=== PATIENT | male | born 1965 | race Caucasian/White ===

== ENCOUNTER → 2016-11-27 | Outpatient (CLI) | payer OTHER ==
[~2016-11-27] MED LIST: ASPI81TA28 PO; ATOR-26 PO; CLOP1TAB15 PO; GLIP-199 PO; HYDR-4079 PO; INSDGIPEN SC; LISI-725 PO; METF1TAB53 PO; METO1TAB69 PO; NTRGSL/4 UT; NVLRPUC INJ
[2016-11-27 13:50] LABS: ALT/SGPT 24 U/L (12-78); BLOOD UREA NITROGEN 18 mg/dl (7-18); CALCIUM 9.3 mg/dl (8.5-10.1); CARBON DIOXIDE 26 mmol/L (21-32); CHLORIDE 101 mmol/L (98-107); CHOLESTEROL 122 mg/dl (0-200); CREATININE 0.92 mg/dl (0.60-1.40); GLUCOSE 256 mg/dl (70-99); POTASSIUM 4.8 mmol/L (3.5-5.1); SODIUM 134 mmol/L (136-145)
[2016-11-27 13:57] LABS: ESTIMATED AVERAGE GLUCOSE 197 mg/dl; HA1C FLAG Normal (Normal)
[2016-11-27 14:00] LABS: ALB/GLOB RATIO 0.8 (0.9-2); ALKALINE PHOSPHATASE 110 U/L (45-117); AST/SGOT 12 U/L (15-37); CHOLESTEROL/HDL RATIO 2.8; HDL CHOLESTEROL 43 mg/dl; TRIGLYCERIDES 108 mg/dl (0-150); VERY LOW DENSITY LIPOPROT CALC 22 mg/dl
[2016-11-27 14:10] LABS: RATIO 295.5 mcg/mg (0-30.0)
== END | disposition home or self-care (01) ==
LOC: C.LABMFLN 09:36
PROVIDERS: ATTEND Family Medicine
DX: I25.10 Atherosclerotic heart disease of native coronary artery without angina pectoris (principal); I10 Essential (primary) hypertension; E11.9 Type 2 diabetes mellitus without complications; E78.5 Hyperlipidemia, unspecified; R80.9 Proteinuria, unspecified

== ENCOUNTER → 2016-12-25 | Outpatient (CLI) | payer OTHER ==
[2016-12-28 22:19] LABS: GAMMA GLOBULIN 1.4 G/DL (0.8-1.7); TOTAL PROTEIN 7.8 G/DL (6.2-8.3)
[2016-12-29 07:15] LABS: ALBUMIN % 70.92 %; ALPHA-2-GLOBULIN % 4.76 %; BETA GLOBULIN % 10.57 %; CREATININE UR 246 MG/DL (20-370); GAMMA GLOBULIN % 13.06 %
== END | disposition home or self-care (01) ==
LOC: C.LABMFLN 09:31
PROVIDERS: ATTEND Family Medicine
DX: R77.1 Abnormality of globulin (principal)

== ENCOUNTER → 2017-01-13 | Outpatient (CLI) | payer OTHER ==
[~2017-01-13] VITALS: Ht 182.9 cm; Wt 169.3 kg
[~2017-01-13] MED LIST changes: +LACTATED RINGER'S 1000ML 1,000 ML IV SCH; +METO100T44 PO; -METO1TAB69 PO
[2017-01-13 09:30] VITALS: Ht 182.9 cm; Wt 169.3 kg
[2017-01-13 09:30] LABS: BASO % 0.4 %; BASO ABS # 0.03 K/uL (0-0.2); COMPLETE YES; EOS % 2.7 %; HEMATOCRIT 38.9 % (42-52); IG% 0.1 %; LYMPH % 19.3 %; LYMPH ABS # 1.42 K/uL (1.2-3.4); MEAN CELL VOLUME 89.8 fL (80-100); MEAN CORPUSCULAR HEMOGLOBIN 30.9 pg (25-34); MEAN CORPUSCULAR HGB CONC 34.4 g/dl (32-36); MONO % 6.3 %; NEUT % 71.2 %; PLATELET COUNT 145 K/uL (130-400); RED BLOOD COUNT 4.33 M/uL (4.7-6.1); WHITE BLOOD COUNT 7.34 K/uL (4.8-10.8)
--- NOTE | 2017-01-13 10:14 | PAT Medication Instructions ---
Service Date Jan 13, 2017. Current Home Medication List Aspirin (Aspirin Ec), 81 MG PO QAM Atorvastatin (Lipitor), 80 MG PO for S Clopidogrel (Plavix), 75 MG PO QAM Glipizide (Glipizide Er), 1 TAB PO QAM Hydrocodone/Acetaminophen 10MG/325MG ([place] 10MG/325MG), 1-2 TABS PO Q8H PRN for RN Insulin Glargine (Lantus Solostar), 50 SC QPM Insulin Human Regular (Novolin R), 22 INJ TIDM Lisinopril (Zestril), 20 MG PO QAM Metformin Hcl (Glucophage Ext Rel), 1,000 MG PO BID Metoprolol Succ (Toprol Xl) (Toprol-Xl ), 100 MG PO QAM Nitroglycerin (Nitrostat), 0.4 MG UT PRN Medication Instructions For Your Scheduled Surgery - Continue as directed: Nitroglycerin (Nitrostat), 0.4 MG UT PRN - Hold the following medications 48 hours prior to surgery: Metformin Hcl (Glucophage Ext Rel), 1,000 MG PO BID - Hold the following medications the morning of surgery: Glipizide (Glipizide Er), 1 TAB PO QAM Insulin Human Regular (Novolin R), 22 INJ TIDM Lisinopril (Zestril), 20 MG PO QAM - Take the following medications the morning of surgery with a sip of water OTHERWISE NOTHING TO EAT OR DRINK AFTER MIDNIGHT: Clopidogrel (Plavix), 75 MG PO QAM (okay to continue per surgeon) Aspirin (Aspirin Ec), 81 MG PO QAM (okay to continue per surgeon) Metoprolol Succ (Toprol Xl) (Toprol-Xl ), 100 MG PO QAM Hydrocodone/Acetaminophen 10MG/325MG ([place] 10MG/325MG), 1-2 TABS PO Q8H PRN ( okay to take if needed up to 4 hours prior to surgery) - Take the following medications as scheduled the night before surgery: Insulin Glargine (Lantus Solostar), 50 SC QPM Atorvastatin (Lipitor), 80 MG PO Insulin Human Regular (Novolin R), 22 INJ TIDM Hydrocodone/Acetaminophen 10MG/325MG ([place] 10MG/325MG), 1-2 TABS PO Q8H PRN If you have any questions please call us at [phone] or [phone] or [phone]
[2017-01-13 10:24] LABS: CALCIUM 9.2 mg/dl (8.5-10.1); CREATININE 0.87 mg/dl (0.60-1.40); POTASSIUM 5.7 mmol/L (3.5-5.1)
--- NOTE | 2017-01-13 10:34 | DIAGNOSTIC IMAGING REPORT ---
CHEST PREADMISSION(PA/LAT) HISTORY: Preop. COMPARISON: None. FINDINGS: The lungs are clear. Cardiac silhouette is top normal in size. No pleural effusions. No pneumothorax. IMPRESSION: No acute process. Electronically signed by: Noe Kumar M.D. 01/13/2017 10:32 AM Dictated Date/Time: 01/13/2017 10:30 AM
== END ==
LOC: C.LAB 08:00 → EDSTATUS 02-02 11:30
PROVIDERS: ATTEND Surgery
DX: I65.22 Occlusion and stenosis of left carotid artery (principal); Z01.810 Encounter for preprocedural cardiovascular examination

== ENCOUNTER → 2017-01-20 | Outpatient (CLI) | payer OTHER ==
[~2017-01-20] MED LIST changes: -LACTATED RINGER'S 1000ML 1,000 ML IV SCH
[2017-01-20 15:02] LABS: BLOOD UREA NITROGEN 18 mg/dl (7-18); BUN/CREATININE RATIO 16.6 (10-20); CALCIUM 9.5 mg/dl (8.5-10.1); CARBON DIOXIDE 29 mmol/L (21-32); CHLORIDE 106 mmol/L (98-107); GLUCOSE 280 mg/dl (70-99); POTASSIUM 5.7 mmol/L (3.5-5.1); SODIUM 139 mmol/L (136-145)
== END | disposition home or self-care (01) ==
LOC: C.LABMFLN 10:29
PROVIDERS: ATTEND Family Medicine
DX: E87.5 Hyperkalemia (principal)

== ENCOUNTER → 2017-01-25 | Outpatient (CLI) | payer OTHER | END | disposition home or self-care (01) | LOC: C.LABMFLN 07:30 | PROVIDERS: ATTEND Family Medicine | DX: E87.5 Hyperkalemia (principal) ==

== ENCOUNTER → 2017-04-14 | Outpatient (CLI) | payer OTHER ==
[~2017-04-14] MED LIST changes: -METO100T44 PO; +METO1TAB69 PO
[2017-04-14 18:13] LABS: BLOOD UREA NITROGEN 13 mg/dl (7-18); BUN/CREATININE RATIO 13.1 (10-20); CALCIUM 8.9 mg/dl (8.5-10.1); CARBON DIOXIDE 27 mmol/L (21-32); CHLORIDE 106 mmol/L (98-107); CREATININE 0.97 mg/dl (0.60-1.40); GLUCOSE 195 mg/dl (70-99); SODIUM 140 mmol/L (136-145)
[2017-04-14 18:15] LABS: BASO % 0.4 %; BASO ABS # 0.03 K/uL (0-0.2); COMPLETE YES; EOS % 2.8 %; HEMATOCRIT 42.1 % (42-52); IG% 0.4 %; LYMPH % 21.2 %; LYMPH ABS # 1.74 K/uL (1.2-3.4); MEAN CELL VOLUME 89.2 fL (80-100); MEAN CORPUSCULAR HEMOGLOBIN 30.7 pg (25-34); MEAN CORPUSCULAR HGB CONC 34.4 g/dl (32-36); MEAN PLATELET VOLUME 11.6 fL (7.4-10.4); MONO % 4.9 %; NEUT % 70.3 %; PLATELET COUNT 170 K/uL (130-400); RED BLOOD COUNT 4.72 M/uL (4.7-6.1); WHITE BLOOD COUNT 8.19 K/uL (4.8-10.8)
[2017-04-14 18:23] LABS: ALT/SGPT 34 U/L (12-78)
[2017-04-14 19:10] LABS: RATIO 337.4 mcg/mg (0-30.0)
[2017-04-15 07:41] LABS: ESTIMATED AVERAGE GLUCOSE 237 mg/dl; HA1C FLAG Normal (Normal)
== END | disposition home or self-care (01) ==
LOC: C.LABMFLN 16:05
PROVIDERS: ATTEND Family Medicine
DX: I65.22 Occlusion and stenosis of left carotid artery (principal); E11.29 Type 2 diabetes mellitus with other diabetic kidney complication; E11.65 Type 2 diabetes mellitus with hyperglycemia

== ENCOUNTER 2017-05-04 09:09 | Inpatient (IN) | payer OTHER ==
[2017-04-15 15:22] VITALS: BMI 50.0
[2017-05-04] VITALS (20 sets, daily range): BP systolic 150–192; BP diastolic 68–94; PULSE 84–97; TEMP 36.7–37; O2SAT 92–98; Ht 182.9 cm; Wt 166.1 kg
[~2017-05-04] VITALS: Ht 182.9 cm; Wt 166.1 kg
[~2017-05-04 09:09] MED LIST changes: +HEPARIN SOD (PORCINE) 1000 UNIT/ML 10 ML VIAL ONE; +LACTATED RINGER'S 1000ML 1,000 ML IV SCH; -LISI-725 PO; +PROTAMINE SULFATE 10 MG/ML 5 ML VIAL IV ONE
[2017-05-04] MEDS ORDERED: NovoLIN-R INSULIN PER UNIT CHARGE ONE (10:05)
[2017-05-04] MEDS ORDERED: NovoLIN-R INSULIN PER UNIT CHARGE IV STA (10:11)
[2017-05-04] MEDS ORDERED: PHENYLEPHRINE HCL INJ 10 MG/ML VIAL ONE ×2 (10:22→10:23)
[2017-05-04] MEDS ORDERED: ONDANSETRON INJ 2 MG/ML 2 ML VIAL ONE ×2 (10:22→15:02)
[2017-05-04] MEDS ORDERED: DEXAMETHASONE SOD INJ 4 MG/ML VIAL ONE (10:22)
[2017-05-04] MEDS ORDERED: LIDOCAINE HCL 2% 2 ML VIAL (20MG/ML) ONE (10:22)
[2017-05-04] MEDS ORDERED: ROCURONIUM BROMIDE 10 MG/ML 5 ML VIAL ONE (10:22)
[2017-05-04] MEDS ORDERED: PROPOFOL IV EMULSION 10 MG/ML 20 ML VIAL IV ONE (10:22)
[2017-05-04] MEDS ORDERED: EpHEDrine SULFATE INJ 50 MG/ML AMP ONE (10:22)
[2017-05-04] MEDS ORDERED: NEOSTIGMINE METHYLSULFATE 5 MG/5 ML SYR ONE (10:22)
[2017-05-04] MEDS ORDERED: SUCCINYLCHOLINE CHLORIDE 20 MG/ML 10 ML VIAL IV ONE (10:22)
[2017-05-04] MEDS ORDERED: GLYCOPYRROLATE INJ 0.2 MG/ML VIAL ONE (10:22)
[2017-05-04] MEDS ORDERED: MIDAZOLAM HCL 1 MG/ML 2ML VIAL ONE ×2 (10:23→16:01)
[2017-05-04] MEDS ORDERED: NITROGLYCERIN 5 MG/ML 10 ML VIAL ONE (10:23)
[2017-05-04] MEDS ORDERED: FENTANYL CITRATE INJ 50 MCG/1 ML 2 ML VIAL ONE ×3 (10:23→13:46)
[2017-05-04] MEDS ORDERED: METOPROLOL TARTRATE 1 MG/ML VIAL ONE (10:24)
[2017-05-04] MEDS ORDERED: ALBUTEROL 0.083% NEBU SOLN 3 ML VIAL INH SCH (10:30)
[2017-05-04] MEDS ORDERED: LIDOCAINE/EPINEPHRINE 1% 20 ML VIAL ONE (12:36)
[2017-05-04] MEDS ORDERED: HEPARIN SOD (PORCINE) 1000 UNIT/ML 10 ML VIAL ONE (12:37)
[2017-05-04] MEDS ORDERED: BACITRACIN 50000 UNIT VIAL ONE (12:37)
--- NOTE | 2017-05-04 12:46 | History & Physical Bridge Note ---
H&P Re-Evaluation Bridge Note: I have examined the patient, reviewed the History & Physical and in the interval since the performance of the History & Physical I have noted the following changes of clinical significance: No changes notedpt marked family at bedside, price completely shaved off
[2017-05-04] MEDS ORDERED: CISATRACURIUM BESYLATE IV SOLN 2 MG/ML 10 ML VIAL ONE (13:55)
[2017-05-04] MEDS ORDERED: NALOXONE HCL 0.4 MG/1 ML VIAL/CARP IV PRN (15:15)
[2017-05-04] MEDS ORDERED: PROMETHAZINE HCL INJ 12.5 MG in SODIUM CHLORIDE 0.9% 50ML 50 ML IV PRN (15:15)
[2017-05-04] MEDS ORDERED: EpHEDrine SULFATE INJ 50 MG/ML AMP IV PRN (15:15)
[2017-05-04] MEDS ORDERED: LABETALOL HCL IV 5 MG/ML 20ML IV PRN (15:15)
[2017-05-04] MEDS ORDERED: ATROPINE SULFATE 0.1 MG/ML 5ML SYR IV PRN (15:15)
[2017-05-04] MEDS ORDERED: ONDANSETRON INJ 2 MG/ML 2 ML VIAL IV PRN ×2 (15:15→15:30)
[2017-05-04] MEDS ORDERED: FLUMAZENIL 0.1 MG/1 ML 10 ML VIAL IV PRN (15:15)
[2017-05-04] MEDS ORDERED: GLUCAGON FOR INJ 1 MG VIAL SQ PRN (15:30)
[2017-05-04] MEDS ORDERED: DEXTROSE 50% 50 ML SYR IV PRN (15:30)
[2017-05-04] MEDS ORDERED: GLUCOSE 40% GEL 15 GM TUBE PO PRN (15:30)
[2017-05-04] MEDS ORDERED: GLUCOSE 10 TABS/TUBE PO PRN (15:30)
--- NOTE | 2017-05-04 15:30 | [facility] Operative Report ---
Operative Report Operative Date May 04, 2017. Pre-Operative Diagnosis Left carotid stenosis critical Post-Operative Diagnosis Left carotid stenosis critical with hemorrhagic plaque Procedure(s) Performed Left Carotid Endarterectomy with bovine patch angioplasty Surgeon Dr Andrea Dumont Lead Generator Surgeon(s) Bhavik Conde Estimated Blood Loss 50ml Findings critical stenosis with elevated hemorrhagic plaque Specimens a. Left carotid plaque Drains 1/4 javier incision per stab Indications critical stenosis left int car Description of Procedure dictated procedure 05/05/17 since operations logistics analyst service not available 05/04/17 confirmation number [id number] I attest to the content of the Intraoperative Record and any orders documented therein. Any exceptions are noted below.
[2017-05-04 15:33] LABS: URINE APPEARANCE CLEAR (CLEAR); URINE BILIRUBIN NEG (NEG); URINE COLOR YELLOW; URINE NITRITE NEG (NEG); URINE PH 5.5 (4.5-7.5); URINE SPECIFIC GRAVITY 1.025 (1.000-1.030); UROBILINOGEN NEG (NEG)
[2017-05-04 15:39] LABS: MANUAL MICROSCOPIC REQUIRED? NO; REVIEW REQ? NO
[2017-05-04] MEDS: NITROGLYCERIN/D5W 100 MCG/ML 250 ML IV PRN ×2 (15:55→22:26)
[2017-05-04] MEDS ORDERED: MIDAZOLAM HCL 5 MG/ML 1 ML VIAL IV STA (16:05)
[2017-05-04] MEDS: HYDROmorphone INJ 1 MG/ML SYR IV PRN ×3 (16:09→16:30)
--- NOTE | 2017-05-04 16:31 | Anesthesiology Progress Note ---
Anesthesia Post Op Note Date & Time May 04, 2017 at 16:29 Vital Signs Pain Intensity: 6.0 Vital Signs Past 12 Hours Date Time Temp Pulse Resp B/P (MAP) Pulse Ox O2 Delivery O2 Flow Rate FiO2 05/04/17 16:21 174/95 05/04/17 16:17 152/75 05/04/17 16:14 88 17 150/66 95 05/04/17 16:14 88 20 158/67 96 05/04/17 16:12 153/78 153/92 05/04/17 16:09 87 16 153/67 98 05/04/17 16:09 87 16 05/04/17 16:07 158/84 05/04/17 16:02 153/83 161/92 05/04/17 15:59 86 21 161/74 97 05/04/17 15:59 85 19 159/72 97 05/04/17 15:57 185/89 05/04/17 15:54 86 14 169/94 93 05/04/17 15:54 86 14 05/04/17 15:53 171/96 05/04/17 15:49 85 15 161/73 96 05/04/17 15:49 83 15 160/84 05/04/17 15:47 171/89 05/04/17 15:44 85 16 145/73 96 05/04/17 15:44 83 22 170/78 95 05/04/17 15:41 165/97 05/04/17 15:40 157/93 05/04/17 15:39 36.6 80 12 157/93 95 Mask 10 159/78 05/04/17 10:42 84 14 98 Room Air 05/04/17 09:45 36.7 84 20 176/87 97 Room Air Notes Mental Status: alert / awake / arousable, participated in evaluation Pt Amnestic to Procedure: Yes Nausea / Vomiting: adequately controlled Pain: adequately controlled Airway Patency, RR, SpO2: stable & adequate BP & HR: stable & adequate Hydration State: stable & adequate Anesthetic Complications: no major complications apparent The patient was transferred to the ICU in stable condition with a systolic blood pressure in the 150s per protocol. I discussed the patient with Mr. Samayoa prior to transferring the patient.
[2017-05-04 16:55] LABS: BUN/CREATININE RATIO 15.3 (10-20); CALCIUM 8.2 mg/dl (8.5-10.1); CREATININE 0.86 mg/dl (0.60-1.40); POTASSIUM 4.3 mmol/L (3.5-5.1)
[2017-05-04] MEDS: MoRPHine SULFATE 4 MG/ML 1 ML CARP\\VIAL IV PRN ×2 (17:22→22:45)
[2017-05-04] MEDS ORDERED: MODERATE STRESS LEVEL ONE (17:30)
[2017-05-04] MEDS ORDERED: INSULIN PROTOCOL GOAL RANGE ONE (17:30)
[2017-05-04] MEDS: CLOPIDOGREL BISULFATE 75 MG TAB PO SCH (17:38)
[2017-05-04] MEDS: ASPIRIN 81 MG ECTAB PO SCH (17:38)
[2017-05-04] MEDS ORDERED: INSULIN IV INFUSION PROTOCOL SCH (17:38)
[2017-05-04] MEDS: METOPROLOL SUCC 50MG EXT REL TAB PO SCH (17:39)
[2017-05-04] MEDS ORDERED: INSULIN HUMAN REGULAR IV BOLUS 4 UNIT in SYRINGE 0 ML IV SCH (18:30)
[2017-05-04] MEDS: INSULIN REGULAR 250 UNITS in SODIUM CHLORIDE 0.9% 250ML 250 ML IV SCH (18:34)
--- NOTE | 2017-05-04 18:59 | Critical Care Consultation ---
Critical Care Consultation Date of Consultation: May 04, 2017. Attending Physician: Andrea Dumont M.D. Reason for Consultation: s/p LEFT Carotid Endarterectomy History of Present Illness Patient is a 51-year-old male with a company past medical history who presents to the ICU after having LEFT-sided carotid endarterectomy with bovine patch angioplasty performed by Dr. Dumont. Patient was initially found to have a carotid bruit on physical exam by his primary care provider, Dr. Ro. He was subsequently evaluated by Dr. Dumont for consultation and possible need for intervention. He was essentially asymptomatic despite a 90% LEFT mid carotid occlusion which was diagnosed on ultrasound with subsequent angiography studies performed an outpatient facilities. The patient had been on Plavix for approximately one year after having cardiac catheterization with ROSIO deployment performed at [facility] secondary to what the patient describes as an NSTEMI. The patient's procedure was withheld until he was one year post cath. The patient presents to ICU 110 without significant complaints. He does state that he is "sore from surgery" to the LEFT sided neck. Otherwise, the patient denies any significant discomfort. He rates his current discomfort as 5/10. He denies any headaches, dizziness, lightheadedness, blurry vision, double vision, slurred speech, facial droop, unilateral weakness/numbness, nausea, vomiting, chest pain, palpitations, shortness of breath, pleuritic pain, or abdominal discomfort. Patient is an insulin-dependent diabetic and has controlled his blood sugars with Lantus and NovoLog for the past 8 years. He is reportedly compliant with his daily medications. He does admit to smoking approximately one half a pack of cigarettes per day most recently. He had actually quit one point for approximate 3 years. He does report he plans on quitting after this procedure. He reports no recreational substance abuse or heavy alcohol use. There was an estimated 20 mL blood loss during the procedure without reported significant complication. Past Medical/Surgical History Hypertension Insulin-dependent diabetes Carotid atherosclerosis NSTEMI Coronary angiography with stenting Hyperlipidemia Chronic smoking history Social History Smoking Status: Current Every Day Smoker Smokeless Tobacco Use: No Drug Use: none Marital Status: Housing Status: lives with family Occupation Status: employed Allergies Coded Allergies: No Known Allergies (Unverified , 05/04/17) Home Medications Scheduled Aspirin (Aspirin Ec), 81 MG PO QAM Atorvastatin (Lipitor), 80 MG PO HS Clopidogrel (Plavix), 75 MG PO QAM Glipizide (Glipizide Er), 1 TAB PO QAM Insulin Glargine (Lantus Solostar), 50 SC QPM Insulin Human Regular (Novolin R), 26 INJ TIDM Metformin Hcl (Glucophage Ext Rel), 1,000 MG PO BID Metoprolol Succ (Toprol Xl) (Toprol-Xl ), 150 MG PO QAM Nitroglycerin (Nitrostat), 0.4 MG UT PRN Scheduled PRN Hydrocodone/Acetaminophen 10MG/325MG ([place] 10MG/325MG), 1-2 TABS PO Q8H PRN for RN Current Inpatient Medications Current Inpatient Medications Medications (Trade) Dose Ordered Sig/Moisés Route Start Time Stop Time Status Last Admin Dose Admin Lactated Ringer's 1,000 ml @ 15 mls/hr Q24H IV 05/04/17 06:00 05/05/17 05:59 Hydromorphone HCl (Dilaudid Inj) 0.25 mg Q5M PRN IV 05/04/17 15:15 05/04/17 20:15 05/04/17 16:30 0.25 MG Naloxone HCl (Narcan Inj) 0.2 mg Q2M PRN IV 05/04/17 15:15 05/04/17 20:15 Flumazenil (Romazicon Inj) 0.2 mg Q2M PRN IV 05/04/17 15:15 05/04/17 20:15 Ondansetron HCl (Zofran Inj) 4 mg ONE PRN IV 05/04/17 15:15 05/04/17 20:15 Promethazine HCl 12.5 mg/Sodium Chloride 50.5 ml @ 202 mls/hr ONE PRN IV 05/04/17 15:15 05/04/17 20:15 Labetalol HCl (Normodyne IV) 5 mg Q5M PRN IV 05/04/17 15:15 05/04/17 20:15 Ephedrine Sulfate (EpHEDrine SULFATE INJ) 5 mg Q5M PRN IV 05/04/17 15:15 05/04/17 20:15 Atropine Sulfate (Atropine Sulfate 0.1MG/Ml Inj) 0.5 mg Q1M PRN IV 05/04/17 15:15 05/04/17 20:15 Nitroglycerin/ Dextrose 250 ml @ 0 mls/hr Q0M PRN IV 05/04/17 15:23 06/03/17 15:22 05/04/17 15:55 45 MLS/HR Oxycodone/ Acetaminophen (Percocet 5-325mg Tab) FOR MODERATE PAIN ... Q4H PRN PO 05/04/17 15:30 05/18/17 15:29 Morphine Sulfate (MoRPHine SULFATE INJ) 4 mg Q2H PRN IV 05/04/17 15:30 05/18/17 15:29 05/04/17 17:22 4 MG Ondansetron HCl (Zofran Inj) 4 mg Q6H PRN IV 05/04/17 15:30 06/03/17 15:29 Insulin Human Regular (novoLIN-R) SLIDING SCALE IF C... ACHS SC 05/04/17 21:00 06/03/17 20:59 Glucose (Glucose 40% Gel) 15-30 GRAMS 15 GRAMS... UD PRN PO 05/04/17 15:30 06/03/17 15:29 Glucose (Glucose Chew Tab) 4-8 Tablets 4 Tabl... UD PRN PO 05/04/17 15:30 06/03/17 15:29 Dextrose (Dextrose 50% 50ML Syringe) 25-50ML OF 50% DW IV FOR... UD PRN IV 05/04/17 15:30 06/03/17 15:29 Glucagon (Glucagon Inj) 1 mg UD PRN SQ 05/04/17 15:30 06/03/17 15:29 Aspirin (Ecotrin Tab) 81 mg QAM PO 05/04/17 18:00 06/03/17 17:59 Clopidogrel Bisulfate (plAVix TAB) 75 mg QAM PO 05/04/17 18:00 06/03/17 17:59 Metoprolol Succinate (Toprol Xl Tab) 150 mg QAM PO 05/04/17 17:30 06/03/17 17:29 Insulin Human Regular (Insulin IV Infusion Protocol) 1 ea NOW STAT N/A 05/04/17 17:28 05/04/17 17:29 UNV Insulin Aspart (novoLOG ASPART) SLIDING SCALE PCHS MI 05/04/17 21:00 06/03/17 20:59 UNV Miscellaneous (Insulin Protocol Goal Range (Other)) 1 ea ONE ONCE N/A 05/04/17 17:30 05/04/17 17:31 UNV Miscellaneous (Insulin Protocol Moderate Stress Level) 1 ea ONE ONCE N/A 05/04/17 17:30 05/04/17 17:31 UNV Review of Systems A complete 10-point Review of Systems was discussed with the patient, with pertinent positives and negatives listed in the History of Present Illness. All remaining Review of Systems questions can be considered negative unless otherwise specified. Physical Exam Date Time Temp Pulse Resp B/P (MAP) Pulse Ox O2 Delivery O2 Flow Rate FiO2 05/04/17 16:56 89 16 159/73 05/04/17 16:56 37.1 05/04/17 16:56 16 05/04/17 16:52 90 15 93 05/04/17 16:52 90 15 05/04/17 16:48 90 17 158/67 93 05/04/17 16:48 90 14 155/66 93 05/04/17 16:46 160/80 05/04/17 16:42 147/77 05/04/17 16:38 37.1 05/04/17 16:38 88 12 134/66 95 05/04/17 16:38 89 12 05/04/17 16:37 141/94 05/04/17 16:33 90 16 138/61 91 05/04/17 16:33 90 19 147/64 91 05/04/17 16:32 146/75 152/81 05/04/17 16:27 89 19 156/67 05/04/17 16:27 88 14 147/79 96 05/04/17 16:21 150/89 05/04/17 16:17 152/75 05/04/17 16:14 88 17 150/66 95 05/04/17 16:14 88 20 158/67 96 05/04/17 16:12 153/78 153/92 05/04/17 16:09 87 16 153/67 98 05/04/17 16:09 87 16 05/04/17 16:07 158/84 05/04/17 16:02 153/83 161/92 05/04/17 15:59 86 21 161/74 97 05/04/17 15:59 85 19 159/72 97 05/04/17 15:57 185/89 05/04/17 15:54 86 14 169/94 93 05/04/17 15:54 86 14 05/04/17 15:53 171/96 05/04/17 15:49 85 15 161/73 96 05/04/17 15:49 83 15 160/84 05/04/17 15:47 171/89 05/04/17 15:44 85 16 145/73 96 05/04/17 15:44 83 22 170/78 95 05/04/17 15:41 165/97 05/04/17 15:40 157/93 05/04/17 15:39 36.6 80 12 157/93 95 Mask 10 159/78 05/04/17 10:42 84 14 98 Room Air 05/04/17 09:45 36.7 84 20 176/87 97 Room Air VITAL SIGNS - Vital signs and nursing notes were reviewed. GENERAL - 51-year-old male appearing his stated age who is in no acute distress. Communicates well with provider and answers questions appropriately. SKIN - Postoperative dressing intact to the LEFT-sided neck. No saturation of blood through the dressing appreciated. No facial edema or tenderness to palpation appreciated. HEAD - Normocephalic, Atraumatic. No Ibanez's Sign or Raccoon's Eyes. No depressed skull fractures palpable. EYES - PERRL with EOMI bilaterally. Sclera anicteric. Palpebral conjunctiva pink and moist with no injection noted. Funduscopic exam demonstrates no AV- nicking, cotton wool spots, or flame hemorrhages. EARS - No deformities of external structures noted on gross examination bilaterally. No pain elicited with palpation of the tragus bilaterally. External auditory canals without discharge or otorrhea. Tympanic membranes pearly torres without retraction or bulging. NOSE - Midline and without cyanosis. No epistaxis or purulent drainage noted. Septum midline without deviation or septal hematoma noted. MOUTH/OROPHARYNX - Without perioral cyanosis. Buccal mucosa pink and moist and without leukoplakia. Tongue midline with equal elevation of palate bilaterally. Fair dentition noted. NECK - As above. No nuchal rigidity. LUNGS - Chest wall symmetric without accessory muscle use, intercostals retractions, or central cyanosis. Normal vesicular breath sounds CTA B/L. No wheezes, rales, or rhonchi appreciated. CARDIAC - RRR with S1/S2. No murmur, rubs, or gallops appreciated. ABDOMEN - Abdominal contour obese and without pulsations or visible masses. BS normoactive all four quadrants. No tenderness, palpable masses, hepatosplenomegaly, or ascites noted. EXTREMITIES - No pretibial edema present. +3/5 radial and dorsalis pedis pulses palpated throughout. FROM with no tremors, fasciculations, or clonus noted throughout. +5/5 strength noted in UE/LE bilaterally. NEUROLOGIC - Cranial nerves II through XII grossly intact. Sensory intact to light touch throughout. Patellar reflexes +2/4. Patient able to perform rapid alternating movements appropriately. PSYCH - A&Ox3 and cooperates fully with examiner. Pt is very pleasant and interacts well with examiner. Laboratory Results Last 24 Hours Test 05/04/17 09:36 05/04/17 10:50 05/04/17 11:47 05/04/17 13:20 Bedside Glucose 277 mg/dl 201 mg/dl 201 mg/dl Urine Color YELLOW Urine Appearance CLEAR Urine pH 5.5 Urine Specific [place] 1.025 Urine Protein 1+ Urine Glucose (UA) 3+ Urine Ketones NEG Urine Occult Blood NEG Urine Nitrite NEG Urine Bilirubin NEG Urine Urobilinogen NEG Urine Leukocyte Esterase NEG Urine WBC (Auto) 1-5 /hpf Urine RBC (Auto) 0-4 /hpf Urine Hyaline Casts (Auto) 0 /lpf Urine Epithelial Cells (Auto) 5-10 /lpf Urine Bacteria (Auto) NEG Test 05/04/17 16:13 05/04/17 17:26 Sodium Level 139 mmol/L Potassium Level 4.3 mmol/L Chloride Level 107 mmol/L Carbon Dioxide Level 26 mmol/L Anion Gap 6.0 mmol/L Blood Urea Nitrogen 13 mg/dl Creatinine 0.86 mg/dl Est Creatinine Clear Calc Drug Dose 166.0 ml/min Estimated GFR () 118.0 Estimated GFR (Non- 101.8 BUN/Creatinine Ratio 15.3 Random Glucose 261 mg/dl Calcium Level 8.2 mg/dl Bedside Glucose 268 mg/dl Assessment & Plan (1) Status post carotid endarterectomy (2) Hyperglycemia (3) Diabetes Reason Critically Ill: Status post LEFT-sided carotid endarterectomy with bovine patch angioplasty currently on nitroglycerin drip for blood pressure control. Elevated blood glucose intraoperatively with poor control with one- time dose of 15 units. There is question whether or not this dose had been provided per nursing staff. To be monitored in the ICU overnight for strict blood pressure monitoring and glycemic control. PLAN: Neuro: * Patient alert and oriented. No neurological deficits appreciated on exam. Serial neurological checks q4hrs per nursing protocol. Resp: * Oxygenating well on 4L NC postoperatively - * Continue to wean off O2 as tolerated. * Encourage Incentive Spirometry. * History of Cigarette use - * Encourage Cessation. * Nicotine Patch as needed. * Monitor for wheezing s/p general anesthesia in the setting of current smoker - DuoNebs PRN. CV: * Currently Hypertensive s/p CEA - Nitro gtt at 100 mcg/min - wean as BP tolerates. * Goal BP <160s/100s. * Restart home antihypertensive Rx. * h/o NSTEMI - s/p ROSIO 1 year ago. Restart Plavix and Aspirin. Fluids/Renal: * No current fluids at this time. Tolerating clears. * BNP in PACU demonstrates no electrolyte disturbances. No ALYSSA w/ BUN/Cr of 13/ 0.86. * Patient requested Luna to be removed in PACU. ID: * No indication for antibiotics at this point. GI/Nutrition: * Tolerating Clears. * Progress diet as directed by surgery. Heme: * Reported EBL of 20 mL intraoperatively. * H&H preoperatively on 04/14/2017 found to be 14.5/42.1. Type & Cross - A Positive. * No saturation of bandage at this point. Continue to monitor closely. Endocrine: * Insulin gtt (Moderate Stress) stared for strict glycemic control. * BSGs per Insulin gtt protocol. Continue to goal BSG 140-480. Thank you for the consultation in the care of this patient. No critical care time provided. To be billed as a Level V care. Please refer to my attending physician's documentation for further recommendation. I have personally evaluated and examined this patient. I agree with assessment and plan of Roxann Cespedes PA-C. Poorly controlled diabetes type 2, started on insulin infusion.
[2017-05-04] MEDS: OXYCODONE/ACETAMINOPHEN 5-325 TAB PO PRN ×2 (19:14→23:57)
[2017-05-04] MEDS ORDERED: ALBUT/IPRATROP 3MG/0.5MG NEB 3 ML VIAL INH PRN (19:15)
[2017-05-04] MEDS ORDERED: NICOTINE 21 MG/24 HR TDSY TD ONE (19:15)
[2017-05-04] MEDS: INSULIN ASPART 100 UNITS/ML 3 ML PEN SC SCH (20:48)
[2017-05-04] MEDS ORDERED: INSULIN HUMAN REGULAR SC SCH (21:00)
[2017-05-05] VITALS (15 sets, daily range): BP systolic 110–177; BP diastolic 52–95; PULSE 73–89; TEMP 36.4–36.8; O2SAT 90–98
[2017-05-05] MEDS: NITROGLYCERIN/D5W 100 MCG/ML 250 ML IV PRN ×3 (01:46→07:23)
[2017-05-05] MEDS: MoRPHine SULFATE 4 MG/ML 1 ML CARP\\VIAL IV PRN (03:25)
[2017-05-05 05:51] LABS: BASO % 0.2 %; BASO ABS # 0.02 K/uL (0-0.2); COMPLETE YES; EOS % 1.5 %; HEMATOCRIT 36.9 % (42-52); IG% 0.4 %; LYMPH % 11.1 %; MEAN CELL VOLUME 89.1 fL (80-100); MEAN CORPUSCULAR HEMOGLOBIN 30.4 pg (25-34); MEAN CORPUSCULAR HGB CONC 34.1 g/dl (32-36); MEAN PLATELET VOLUME 11.2 fL (7.4-10.4); MONO % 5.6 %; NEUT % 81.2 %; PLATELET COUNT 159 K/uL (130-400); RED BLOOD COUNT 4.14 M/uL (4.7-6.1); WHITE BLOOD COUNT 9.95 K/uL (4.8-10.8)
[2017-05-05 06:27] LABS: BUN/CREATININE RATIO 12.2 (10-20); CALCIUM 8.2 mg/dl (8.5-10.1); CREATININE 0.7 mg/dl (0.60-1.40); POTASSIUM 4.1 mmol/L (3.5-5.1)
[2017-05-05 06:30] LABS: MAGNESIUM 1.2 mg/dl (1.8-2.4); PHOSPHORUS 3.8 mg/dl (2.5-4.9)
[2017-05-05] MEDS: MAGNESIUM SULFATE 1GM / D5W 1 GM in PREMIXED IN D5W 100 ML IV SCH ×2 (07:22→09:11)
[2017-05-05] MEDS: CLOPIDOGREL BISULFATE 75 MG TAB PO SCH (07:23)
[2017-05-05] MEDS: METOPROLOL SUCC 50MG EXT REL TAB PO SCH (07:24)
[2017-05-05] MEDS: ASPIRIN 81 MG ECTAB PO SCH (07:24)
[2017-05-05] MEDS: OXYCODONE/ACETAMINOPHEN 5-325 TAB PO PRN ×2 (07:29→15:09)
--- NOTE | 2017-05-05 07:29 | Surgery Progress Note ---
Surgery Progress Note Date of Service May 05, 2017. Subjective Post OP Day: 1 s/p lce alert coherent in no distress intraop findings discussed with pt Objective Vital Signs: Date Time Temp Pulse Resp B/P (MAP) Pulse Ox O2 Delivery O2 Flow Rate FiO2 05/05/17 06:00 83 13 169/70 (103) 96 Nasal Cannula 2.0 158/87 (110) 05/05/17 04:00 36.5 81 16 166/72 (103) 94 Nasal Cannula 2.0 155/95 (115) 05/05/17 04:00 95 Nasal Cannula 2.0 05/05/17 02:00 87 15 164/71 (102) 93 Nasal Cannula 1.0 138/77 (97) 05/05/17 00:01 36.8 88 17 177/75 (109) 93 Room Air 05/04/17 23:59 92 Room Air 05/04/17 22:01 92 18 158/74 (102) 97 Nasal Cannula 2.0 05/04/17 22:00 93 14 161/73 (102) 95 05/04/17 21:46 92 18 150/94 (112) 94 05/04/17 21:45 92 19 151/71 (97) 93 05/04/17 21:30 92 16 192/85 (120) 95 05/04/17 21:15 97 17 160/79 (106) 97 05/04/17 21:02 95 21 158/76 (103) 96 05/04/17 21:00 97 17 155/72 (99) 96 Nasal Cannula 2.0 05/04/17 20:47 96 13 171/74 (106) 97 05/04/17 20:45 96 17 152/74 (100) 98 05/04/17 20:31 90 19 175/71 (105) 96 05/04/17 20:30 94 19 163/68 (99) 97 05/04/17 20:29 96 20 160/72 (101) 95 Nasal Cannula 2.0 05/04/17 20:17 93 18 162/88 (112) 96 Nasal Cannula 2.0 05/04/17 20:17 162/88 (112) 05/04/17 20:17 93 18 162/88 (112) 05/04/17 20:17 162/88 (112) 05/04/17 20:01 95 20 163/72 (102) 98 Nasal Cannula 2.0 05/04/17 19:20 96 Nasal Cannula 2.0 05/04/17 19:10 37.0 95 20 165/73 (103) 96 Nasal Cannula 2.0 05/04/17 16:56 89 16 159/73 05/04/17 16:56 37.1 05/04/17 16:56 16 05/04/17 16:52 90 15 93 05/04/17 16:52 90 15 05/04/17 16:48 90 17 158/67 93 05/04/17 16:48 90 14 155/66 93 05/04/17 16:46 160/80 05/04/17 16:42 147/77 05/04/17 16:38 37.1 05/04/17 16:38 88 12 134/66 95 05/04/17 16:38 89 12 05/04/17 16:37 141/94 05/04/17 16:33 90 16 138/61 91 05/04/17 16:33 90 19 147/64 91 05/04/17 16:32 146/75 152/81 05/04/17 16:27 89 19 156/67 05/04/17 16:27 88 14 147/79 96 05/04/17 16:21 150/89 05/04/17 16:17 152/75 05/04/17 16:14 88 17 150/66 95 05/04/17 16:14 88 20 158/67 96 05/04/17 16:12 153/78 153/92 05/04/17 16:09 87 16 153/67 98 05/04/17 16:09 87 16 05/04/17 16:07 158/84 05/04/17 16:02 153/83 161/92 05/04/17 15:59 86 21 161/74 97 05/04/17 15:59 85 19 159/72 97 05/04/17 15:57 185/89 05/04/17 15:54 86 14 169/94 93 05/04/17 15:54 86 14 05/04/17 15:53 171/96 05/04/17 15:49 85 15 161/73 96 05/04/17 15:49 83 15 160/84 05/04/17 15:47 171/89 05/04/17 15:44 85 16 145/73 96 05/04/17 15:44 83 22 170/78 95 05/04/17 15:41 165/97 05/04/17 15:40 157/93 05/04/17 15:39 36.6 80 12 157/93 95 Mask 10 159/78 05/04/17 10:42 84 14 98 Room Air 05/04/17 09:45 36.7 84 20 176/87 97 Room Air Head: + pertinent finding (good left sup temp pulse) Neck: + pertinent finding (incision clean no drainage) Incision(s): findings (minimal swelling and minimal javier drainage from javier (removed)) Laboratory Results: Results Past 24 Hours Test 05/04/17 09:36 05/04/17 10:50 05/04/17 11:47 05/04/17 13:20 Range/Units Bedside Glucose 277 201 201 70-99 mg/dl Urine Color YELLOW Urine Appearance CLEAR CLEAR Urine pH 5.5 4.5-7.5 Urine Specific [place] 1.025 1.000-1.030 Urine Protein 1+ NEG Urine Glucose (UA) 3+ NEG Urine Ketones NEG NEG Urine Occult Blood NEG NEG Urine Nitrite NEG NEG Urine Bilirubin NEG NEG Urine Urobilinogen NEG NEG Urine Leukocyte Esterase NEG NEG Urine WBC (Auto) 1-5 0-5 /hpf Urine RBC (Auto) 0-4 0-4 /hpf Urine Hyaline Casts (Auto) 0 0-5 /lpf Urine Epithelial Cells (Auto) 5-10 0-5 /lpf Urine Bacteria (Auto) NEG NEG Test 05/04/17 16:13 05/04/17 17:26 05/04/17 20:01 05/04/17 20:59 Range/Units Sodium Level 139 136-145 mmol/L Potassium Level 4.3 3.5-5.1 mmol/L Chloride Level 107 98-107 mmol/L Carbon Dioxide Level 26 21-32 mmol/L Anion Gap 6.0 3-11 mmol/L Blood Urea Nitrogen 13 7-18 mg/dl Creatinine 0.86 0.60-1.40 mg/dl Est Creatinine Clear Calc Drug Dose 166.0 ml/min Estimated GFR () 118.0 Estimated GFR (Non- 101.8 BUN/Creatinine Ratio 15.3 10-20 Random Glucose 261 70-99 mg/dl Calcium Level 8.2 8.5-10.1 mg/dl Bedside Glucose 268 282 290 70-99 mg/dl Test 05/04/17 22:07 05/04/17 23:27 05/05/17 00:21 05/05/17 01:14 Range/Units Bedside Glucose 241 203 178 151 70-99 mg/dl Test 05/05/17 02:16 05/05/17 03:15 05/05/17 04:07 05/05/17 05:10 Range/Units Bedside Glucose 135 127 121 130 70-99 mg/dl Test 05/05/17 05:17 05/05/17 06:13 Range/Units White Blood Count 9.95 4.8-10.8 K/uL Red Blood Count 4.14 4.7-6.1 M/uL Hemoglobin 12.6 14.0-18.0 g/dL Hematocrit 36.9 42-52 % Mean Corpuscular Volume 89.1 80-100 fL Mean Corpuscular Hemoglobin 30.4 25-34 pg Mean Corpuscular Hemoglobin Concent 34.1 32-36 g/dl Platelet Count 159 130-400 K/uL Mean Platelet Volume 11.2 7.4-10.4 fL Neutrophils (%) (Auto) 81.2 % Lymphocytes (%) (Auto) 11.1 % Monocytes (%) (Auto) 5.6 % Eosinophils (%) (Auto) 1.5 % Basophils (%) (Auto) 0.2 % Neutrophils # (Auto) 8.08 1.4-6.5 K/uL Lymphocytes # (Auto) 1.10 1.2-3.4 K/uL Monocytes # (Auto) 0.56 0.11-0.59 K/uL Eosinophils # (Auto) 0.15 0-0.5 K/uL Basophils # (Auto) 0.02 0-0.2 K/uL RDW Standard Deviation 43.3 36.4-46.3 fL RDW Coefficient of Variation 13.4 11.5-14.5 % Immature Granulocyte % (Auto) 0.4 % Immature Granulocyte # (Auto) 0.04 0.00-0.02 K/uL Sodium Level 136 136-145 mmol/L Potassium Level 4.1 3.5-5.1 mmol/L Chloride Level 102 98-107 mmol/L Carbon Dioxide Level 26 21-32 mmol/L Anion Gap 8.0 3-11 mmol/L Blood Urea Nitrogen 9 7-18 mg/dl Creatinine 0.70 0.60-1.40 mg/dl Est Creatinine Clear Calc Drug Dose 204.0 ml/min Estimated GFR () 128.4 Estimated GFR (Non- 110.8 BUN/Creatinine Ratio 12.2 10-20 Random Glucose 127 70-99 mg/dl Calcium Level 8.2 8.5-10.1 mg/dl Phosphorus Level 3.8 2.5-4.9 mg/dl Magnesium Level 1.2 1.8-2.4 mg/dl Bedside Glucose 139 70-99 mg/dl Microbiology Results 05/04/17 Urine Culture, Received Pending Assessment & Plan 05/05/17 discussed with labelling machine operator pt still on nitro drip but once po antihypertensive meds control his hypertension he can be d/c
[2017-05-05] MEDS: INSULIN ASPART 100 UNITS/ML 3 ML PEN SC SCH (07:34)
--- NOTE | 2017-05-05 08:38 | OPERATIVE REPORT ---
DATE OF OPERATION: 05/04/2017 Unable to dictate this yesterday since the hr internship service was down again. PREOPERATIVE DIAGNOSIS: Critical left carotid stenosis. POSTOPERATIVE DIAGNOSIS: Same with hemorrhagic plaque. PROCEDURE: Left carotid endarterectomy, bovine patch angioplasty. SUMMARY: The patient was taken to the operating room where under general anesthesia the patient was placed with a larger roll underneath his chest area to try to extend his neck. Of note, the patient weighs 365 pounds. We then rotated his head to the right side, put some tape on his forehead to try to keep his head in that area. The left neck area and chest was prepped with Betadine scrubbing solution and properly draped. Systemic antibiotics were given. We used 1% Xylocaine with epinephrine to infiltrate what we marked out as initially the landmark from the sternal notch to the ear, just along the tentative incision. We certainly could not feel the sternocleidus or any musculature at this time. Once local anesthetic was used to infiltrate the skin and subcutaneous tissue, an incision was made, deepened through subcutaneous tissue. We finally were able to identify the sternocleidus muscle which we retracted with a Henly retractor. We identified the internal jugular vein. We mobilized it laterally. Then, we were able to get onto the carotid which I was going to imagine was deep into at least about 4 inches before we could get to it. At this point, the common carotid was elevated over a vessel loop. We took our dissection more cephalad, identifying the facial vein which we doubly ligated and divided more up into the neck area until we were able to identify the hypoglossal nerve and avoided it. Superior thyroid artery was identified and encircled with a Eva tie of 2-0 silk. The external carotid was elevated over a Adarsh drain. The internal carotid which fortunately most of the plaque was just to the takeoff, was mobilized to the point that we felt that we were beyond the plaque at least on a dissection plane. I divided the suspensory ligament and ligated with 2-0 silk. At this time, once we had sufficient exposure, we heparinized it with 13,000 u of heparin. After waiting approximately 5 minutes, we clamped the internal carotid with a bulldog clamp, the external and then the common. An arteriotomy in the common carotid was made, probably about an inch from the bifurcation and took our Calderon scissors to divide up into the internal carotid area which we identified the patient had a hemorrhagic plaque, elevating the plaque into the internal carotid area. We went onto the internal carotid well beyond where the plaque was. We at this point, once we had performed this, we then used a Jackson elevator to identify the circular fibers and started our common endarterectomy and the common carotid. I went up to the external carotid, we did an inversion endarterectomy, then onto the internal carotid to an area that seemed like that all tapered well. There was no free intima. We paid meticulous dissection to make sure there was no intima and the endpoint appeared to be fine. We released the clamp on the internal carotid, excellent backbleeding, almost pulsatile. What we identified as the internal carotid was actually about a 4 mm vessel. We flushed the common and the external carotid. At this point, we brought up the bovine patch that we had modified while we were waiting for the heparinization and onlaid onto as a patch with 6-0 Prolene suture. Prior to completing onlay , we then backbled the internal carotid, the external and common, controlling the backbleeding from the internal carotid with a DeBakey clamp after we had placed 4 Bakes dilator beyond the anastomosis. Once we tied down the patch, I used a 25-gauge needle to puncture the patch to free any entrapped air. I identified as we released the external carotid clamp that we had that there were small 2 bleeders along the suture line that we controlled with 6-0 Prolene sutures. At this point, when this was controlled, we released the common carotid clamp and there was virtually no bleeding on the suture line. We then released the internal carotid DeBakey forceps. I felt beyond the toe of the patch, there was no thrill appreciated. At this point, we packed the wound. I gave him 65 mg of protamine. Once this had been performed, the area looked quite hemostatic. I did leave quarter-inch Adarsh drain that was brought in between what we felt the 2 heads of the sternocleidus along the incision and attached to skin edge with 2-0 silk. The area was meticulously checked for hemostasis and appeared satisfactory. We closed in multiple layers with 2-0 Dexon interrupted and prahbu for skin edges. Dressing was applied. The procedure was tolerated well by the patient. At the end of procedure, the patient was neurologically intact, moving all extremities and alert. I attest to the content of the Intraoperative Record and any orders documented therein. Any exceptions are noted below. MTDD
[2017-05-05] MEDS ORDERED: INSULIN GLARGINE SOLOSTAR 100 UNITS/ML 3 ML PEN SC ONE (10:00)
[2017-05-05] MEDS ORDERED: PHARMACY GLYCEMIC MGMT CONSULT PRN (10:00)
--- NOTE | 2017-05-05 10:18 | Anesthesiology Progress Note ---
Anesthesia Post Op Note Date & Time May 05, 2017 at 10:17 Vital Signs Pain Intensity: 5.0 Vital Signs Past 12 Hours Date Time Temp Pulse Resp B/P (MAP) Pulse Ox O2 Delivery O2 Flow Rate FiO2 05/05/17 09:00 75 18 138/57 (84) 91 Nasal Cannula 2.0 113/63 (80) 05/05/17 08:01 36.4 84 15 152/57 (88) 90 Nasal Cannula 2.0 147/76 (99) 05/05/17 08:00 Nasal Cannula 2.0 05/05/17 07:06 89 20 163/77 (105) 95 Nasal Cannula 2.0 05/05/17 06:00 83 13 169/70 (103) 96 Nasal Cannula 2.0 158/87 (110) 05/05/17 04:00 36.5 81 16 166/72 (103) 94 Nasal Cannula 2.0 155/95 (115) 05/05/17 04:00 95 Nasal Cannula 2.0 05/05/17 02:00 87 15 164/71 (102) 93 Nasal Cannula 1.0 138/77 (97) 05/05/17 00:01 36.8 88 17 177/75 (109) 93 Room Air 05/04/17 23:59 92 Room Air Notes Mental Status: alert / awake / arousable, participated in evaluation Pt Amnestic to Procedure: Yes Nausea / Vomiting: adequately controlled Pain: adequately controlled Airway Patency, RR, SpO2: stable & adequate BP & HR: stable & adequate Hydration State: stable & adequate Anesthetic Complications: no major complications apparent
[2017-05-05] MEDS: INSULIN REGULAR 250 UNITS in SODIUM CHLORIDE 0.9% 250ML 250 ML IV SCH (10:20)
--- NOTE | 2017-05-05 10:48 | Critical Care Progress Note ---
Critical Care Progress Note Date of Service May 05, 2017. ICU Day ICU Day Number: [address] Lopez Subjective Patient is a 51-year-old male who underwent LEFT-sided CEA last evening. He had persistent hypertension according nitroglycerin drip throughout the night. In addition, he has had poorly controlled blood glucose levels requiring insulin drip. Patient had no events overnight. His pain is adequately controlled. He currently describes some "soreness" to the LEFT-sided incision site rating his discomfort a 5/10. He is currently eating clear liquids without issue. He denies any headaches, dizziness, lightheadedness, blurry vision, double vision, slurred speech, facial droop, or weakness/numbness, chest pain, palpitations, pleuritic pain, shortness of breath, nausea, or vomiting. Objective VITAL SIGNS - Vital signs and nursing notes were reviewed. GENERAL - 51-year-old male appearing his stated age who is in no acute distress. Communicates well with provider and answers questions appropriately. SKIN - Stapled wound noted to the LEFT-sided neck. No erythema or ecchymosis. Edema surrounding the incision site. Mildly tender to palpation. No fluctuance. No audible or palpable bruit. No facial edema or tenderness to palpation appreciated. HEAD - Normocephalic, Atraumatic. EYES - PERRL with EOMI bilaterally. Sclera anicteric. Palpebral conjunctiva pink and moist with no injection noted. EARS - No deformities of external structures noted on gross examination bilaterally. No pain elicited with palpation of the tragus bilaterally. External auditory canals without discharge or otorrhea. Tympanic membranes pearly torres without retraction or bulging. NOSE - Midline and without cyanosis. No epistaxis or purulent drainage noted. MOUTH/OROPHARYNX - Without perioral cyanosis. Buccal mucosa pink and moist and without leukoplakia. Tongue midline with equal elevation of palate bilaterally. Fair dentition noted. NECK - As above. No nuchal rigidity. LUNGS - Chest wall symmetric without accessory muscle use, intercostals retractions, or central cyanosis. Normal vesicular breath sounds CTA B/L. No wheezes, rales, or rhonchi appreciated. CARDIAC - RRR with S1/S2. No murmur, rubs, or gallops appreciated. ABDOMEN - Abdominal contour obese and without pulsations or visible masses. BS normoactive all four quadrants. No tenderness, palpable masses, hepatosplenomegaly, or ascites noted. EXTREMITIES - No pretibial edema present.+5/5 strength noted in UE/LE bilaterally. NEUROLOGIC - Cranial nerves II through XII grossly intact. No Facial Droop. Sensory intact to light touch throughout. Patient able to perform rapid alternating movements appropriately. PSYCH - A&Ox3 and cooperates fully with examiner. Pt is very pleasant and interacts well with examiner. Assessment & Plan (1) Status post carotid endarterectomy (2) Hyperglycemia (3) Diabetes (4) Carotid stenosis Reason Critically Ill: Status post LEFT-sided carotid endarterectomy with bovine patch angioplasty. POD #1 PLAN: Neuro: * Patient alert and oriented. CAM ICU - NEGATIVE No neurological deficits appreciated on exam. No facial droop. Serial neurological checks q4hrs per nursing protocol. Resp: * Oxygenating well on room air - * Noted that patient does desaturate into the high 80s on room air while sleeping. Conversation had with the patient and reports that he was tested for sleep apnea in the past, but "did not complete the tests." Patient encouraged to follow up with his primary care provider at the time of discharge for continued testing for possible sleep apnea given his documented desaturation and body habitus likely consistent with CAROLINE. This certainly could be contributing to his ongoing hypertension issues as well. * Encourage Incentive Spirometry. * History of Cigarette use - * Continued to Encourage Cessation. * Refused Nicotine Patch last evening. * Monitor for wheezing s/p general anesthesia in the setting of current smoker - Kiah PRN. CV: * Hypertension. * Goal BP <160s/100s. * Nitroglycerin was titrated to 170 mcg per hour overnight with blood pressures remaining in the 140s-160s on arterial line. Arterial line was reassessed and peripheral blood pressures actually normalized at this point. Patient did receive his daily dose of metoprolol 150 mg this morning. We will trend down his nitroglycerin and monitor NIBPs and Art Pressures. Will continue to intact antihypertensive regime based on response to decreasing titration of nitroglycerin and response to oral medications. * Added captopril 12.5 mg every 6 hours for added blood pressure control. In conversation with the patient, he was previously on lisinopril, however this medication was discontinued by his primary care provider. The patient is status post WA as well as an insulin-dependent diabetic. Given the circumstances with the associated relative hypertension at this point, it was felt best that an MENDOZA inhibitor be added to his regime. The patient has had persistent hypertension previously with response to typical antihypertensive regime making renal artery occlusion or renal etiology must less likely. * Restart home antihypertensive Rx. * h/o NSTEMI - s/p ROSIO 1 year ago. Restart Plavix and Aspirin. * DVT Prophylaxis - ambulating without issue in the room. Fluids/Renal: * No current fluids at this time. Tolerating clears. * Repeat BNP demonstrates Mag of 1.2 - Replaced overnight with 1 g IV. Will continue to monitor. ID: * No indication for antibiotics at this point. GI/Nutrition: * Continues to tolerate clears. * Progress diet as directed by surgery. Heme: * H&H stable today. * No bleeding or worrisome hematoma at this point. Endocrine: * Insulins running 120s-140s on insulin gtt. Will transition to patient's at home basal/bolus dosing. I have personally spent 30 minutes of critical care time in the direct management of this patient. This is a life/limb threatening event. This includes time spent evaluating patient, direct bedside care, chart review, placing orders, interpretation of diagnostic studies, discussion with consultants, patient, and family members, as well as other required patient management activities. This time is exclusive of all separately billable procedures, and teaching time and separate from and in addition to any other critical care service time. Thank you for the consultation in the care of this patient. Please refer to my attending physician's documentation for further recommendation. I have personally evaluated and examined this patient. I agree with assessment and plan of Roxann Cespedes PA-C. Checked return to flow from a line, a line likely spurious and return to flow was consistent with noninvasive cuff. Blood pressure controlled with home regimen, blood sugars under control started on home insulin regimen. Would D for additional MENDOZA inhibitor to primary care provider and pigskin trimmer. Patient stable for downgrade. Consults & Procedures Consultants: Dr. Dumont - Attending Surgeon Procedures: Continue to monitor LEFT Radial Arterial Line. Plan to d/c if BPs normalize with PO Rx and d/c of Nitro gtt. Data Medications: Current Inpatient Medications Medications (Trade) Dose Ordered Sig/Moisés Route Start Time Stop Time Status Last Admin Dose Admin Nitroglycerin/ Dextrose 250 ml @ 0 mls/hr Q0M PRN IV 05/04/17 15:23 06/03/17 15:22 05/05/17 07:23 102 MLS/HR Oxycodone/ Acetaminophen (Percocet 5-325mg Tab) FOR MODERATE PAIN ... Q4H PRN PO 05/04/17 15:30 05/18/17 15:29 05/05/17 07:29 2 TAB Morphine Sulfate (MoRPHine SULFATE INJ) 4 mg Q2H PRN IV 05/04/17 15:30 05/18/17 15:29 05/05/17 03:25 4 MG Ondansetron HCl (Zofran Inj) 4 mg Q6H PRN IV 05/04/17 15:30 06/03/17 15:29 Glucose (Glucose 40% Gel) 15-30 GRAMS 15 GRAMS... UD PRN PO 05/04/17 15:30 06/03/17 15:29 Glucose (Glucose Chew Tab) 4-8 Tablets 4 Tabl... UD PRN PO 05/04/17 15:30 06/03/17 15:29 Dextrose (Dextrose 50% 50ML Syringe) 25-50ML OF 50% DW IV FOR... UD PRN IV 05/04/17 15:30 06/03/17 15:29 Glucagon (Glucagon Inj) 1 mg UD PRN SQ 05/04/17 15:30 06/03/17 15:29 Aspirin (Ecotrin Tab) 81 mg QAM PO 05/04/17 18:00 06/03/17 17:59 05/05/17 07:24 81 MG Clopidogrel Bisulfate (plAVix TAB) 75 mg QAM PO 05/04/17 18:00 06/03/17 17:59 05/05/17 07:23 75 MG Metoprolol Succinate (Toprol Xl Tab) 150 mg QAM PO 05/04/17 17:30 06/03/17 17:29 05/05/17 07:24 150 MG Insulin Human Regular 250 units/ Sodium Chloride 252.5 ml @ 0 mls/hr DAILY@1130 IV 05/04/17 18:30 05/05/17 16:00 05/04/17 18:34 4.1 MLS/HR Albuterol/ Ipratropium (Duoneb) 3 ml Q4R PRN INH 05/04/17 19:15 06/03/17 19:14 Captopril (Capoten Tab) 12.5 mg Q6 PO 05/05/17 12:00 06/04/17 11:59 Miscellaneous Information (Pending Order) 1 ea TODAY@1800 N/A 05/05/17 18:00 05/05/17 18:01 Miscellaneous Information (Consult Glycemic Management Pharmacy) 1 ea UD PRN N/A 05/05/17 10:00 06/04/17 09:59 Insulin Aspart (novoLOG ASPART) SLIDING SCALE Q4 SC 05/05/17 16:00 06/04/17 15:59 Vital Signs: Date Time Temp Pulse Resp B/P (MAP) Pulse Ox O2 Delivery O2 Flow Rate FiO2 05/05/17 09:00 75 18 138/57 (84) 91 Nasal Cannula 2.0 113/63 (80) 05/05/17 08:01 36.4 84 15 152/57 (88) 90 Nasal Cannula 2.0 147/76 (99) 05/05/17 07:06 89 20 163/77 (105) 95 Nasal Cannula 2.0 05/05/17 06:00 83 13 169/70 (103) 96 Nasal Cannula 2.0 158/87 (110) 05/05/17 04:00 36.5 81 16 166/72 (103) 94 Nasal Cannula 2.0 155/95 (115) 05/05/17 04:00 95 Nasal Cannula 2.0 05/05/17 02:00 87 15 164/71 (102) 93 Nasal Cannula 1.0 138/77 (97) 05/05/17 00:01 36.8 88 17 177/75 (109) 93 Room Air 05/04/17 23:59 92 Room Air 05/04/17 22:01 92 18 158/74 (102) 97 Nasal Cannula 2.0 05/04/17 22:00 93 14 161/73 (102) 95 05/04/17 21:46 92 18 150/94 (112) 94 05/04/17 21:45 92 19 151/71 (97) 93 05/04/17 21:30 92 16 192/85 (120) 95 05/04/17 21:15 97 17 160/79 (106) 97 05/04/17 21:02 95 21 158/76 (103) 96 05/04/17 21:00 97 17 155/72 (99) 96 Nasal Cannula 2.0 05/04/17 20:47 96 13 171/74 (106) 97 05/04/17 20:45 96 17 152/74 (100) 98 05/04/17 20:31 90 19 175/71 (105) 96 05/04/17 20:30 94 19 163/68 (99) 97 05/04/17 20:29 96 20 160/72 (101) 95 Nasal Cannula 2.0 05/04/17 20:17 93 18 162/88 (112) 96 Nasal Cannula 2.0 05/04/17 20:17 162/88 (112) 05/04/17 20:17 93 18 162/88 (112) 05/04/17 20:17 162/88 (112) 05/04/17 20:01 95 20 163/72 (102) 98 Nasal Cannula 2.0 05/04/17 19:20 96 Nasal Cannula 2.0 05/04/17 19:10 37.0 95 20 165/73 (103) 96 Nasal Cannula 2.0 05/04/17 16:56 89 16 159/73 05/04/17 16:56 37.1 05/04/17 16:56 16 05/04/17 16:52 90 15 93 05/04/17 16:52 90 15 05/04/17 16:48 90 17 158/67 93 05/04/17 16:48 90 14 155/66 93 05/04/17 16:46 160/80 05/04/17 16:42 147/77 05/04/17 16:38 37.1 05/04/17 16:38 88 12 134/66 95 05/04/17 16:38 89 12 05/04/17 16:37 141/94 05/04/17 16:33 90 16 138/61 91 05/04/17 16:33 90 19 147/64 91 05/04/17 16:32 146/75 152/81 05/04/17 16:27 89 19 156/67 05/04/17 16:27 88 14 147/79 96 05/04/17 16:21 150/89 05/04/17 16:17 152/75 05/04/17 16:14 88 17 150/66 95 05/04/17 16:14 88 20 158/67 96 05/04/17 16:12 153/78 153/92 05/04/17 16:09 87 16 153/67 98 05/04/17 16:09 87 16 05/04/17 16:07 158/84 05/04/17 16:02 153/83 161/92 05/04/17 15:59 86 21 161/74 97 05/04/17 15:59 85 19 159/72 97 05/04/17 15:57 185/89 05/04/17 15:54 86 14 169/94 93 05/04/17 15:54 86 14 05/04/17 15:53 171/96 05/04/17 15:49 85 15 161/73 96 05/04/17 15:49 83 15 160/84 05/04/17 15:47 171/89 05/04/17 15:44 85 16 145/73 96 05/04/17 15:44 83 22 170/78 95 05/04/17 15:41 165/97 05/04/17 15:40 157/93 05/04/17 15:39 36.6 80 12 157/93 95 Mask 10 159/78 05/04/17 10:42 84 14 98 Room Air Laboratory Results: Last 24 Hours Test 05/04/17 10:50 05/04/17 11:47 05/04/17 13:20 05/04/17 16:13 Bedside Glucose 201 mg/dl 201 mg/dl Urine Color YELLOW Urine Appearance CLEAR Urine pH 5.5 Urine Specific Willet 1.025 Urine Protein 1+ Urine Glucose (UA) 3+ Urine Ketones NEG Urine Occult Blood NEG Urine Nitrite NEG Urine Bilirubin NEG Urine Urobilinogen NEG Urine Leukocyte Esterase NEG Urine WBC (Auto) 1-5 /hpf Urine RBC (Auto) 0-4 /hpf Urine Hyaline Casts (Auto) 0 /lpf Urine Epithelial Cells (Auto) 5-10 /lpf Urine Bacteria (Auto) NEG Sodium Level 139 mmol/L Potassium Level 4.3 mmol/L Chloride Level 107 mmol/L Carbon Dioxide Level 26 mmol/L Anion Gap 6.0 mmol/L Blood Urea Nitrogen 13 mg/dl Creatinine 0.86 mg/dl Est Creatinine Clear Calc Drug Dose 166.0 ml/min Estimated GFR () 118.0 Estimated GFR (Non- 101.8 BUN/Creatinine Ratio 15.3 Random Glucose 261 mg/dl Calcium Level 8.2 mg/dl Test 05/04/17 17:26 05/04/17 20:01 05/04/17 20:59 05/04/17 22:07 Bedside Glucose 268 mg/dl 282 mg/dl 290 mg/dl 241 mg/dl Test 05/04/17 23:27 05/05/17 00:21 05/05/17 01:14 05/05/17 02:16 Bedside Glucose 203 mg/dl 178 mg/dl 151 mg/dl 135 mg/dl Test 05/05/17 03:15 05/05/17 04:07 05/05/17 05:10 05/05/17 05:17 Bedside Glucose 127 mg/dl 121 mg/dl 130 mg/dl White Blood Count 9.95 K/uL Red Blood Count 4.14 M/uL Hemoglobin 12.6 g/dL Hematocrit 36.9 % Mean Corpuscular Volume 89.1 fL Mean Corpuscular Hemoglobin 30.4 pg Mean Corpuscular Hemoglobin Concent 34.1 g/dl Platelet Count 159 K/uL Mean Platelet Volume 11.2 fL Neutrophils (%) (Auto) 81.2 % Lymphocytes (%) (Auto) 11.1 % Monocytes (%) (Auto) 5.6 % Eosinophils (%) (Auto) 1.5 % Basophils (%) (Auto) 0.2 % Neutrophils # (Auto) 8.08 K/uL Lymphocytes # (Auto) 1.10 K/uL Monocytes # (Auto) 0.56 K/uL Eosinophils # (Auto) 0.15 K/uL Basophils # (Auto) 0.02 K/uL RDW Standard Deviation 43.3 fL RDW Coefficient of Variation 13.4 % Immature Granulocyte % (Auto) 0.4 % Immature Granulocyte # (Auto) 0.04 K/uL Sodium Level 136 mmol/L Potassium Level 4.1 mmol/L Chloride Level 102 mmol/L Carbon Dioxide Level 26 mmol/L Anion Gap 8.0 mmol/L Blood Urea Nitrogen 9 mg/dl Creatinine 0.70 mg/dl Est Creatinine Clear Calc Drug Dose 204.0 ml/min Estimated GFR () 128.4 Estimated GFR (Non- 110.8 BUN/Creatinine Ratio 12.2 Random Glucose 127 mg/dl Calcium Level 8.2 mg/dl Phosphorus Level 3.8 mg/dl Magnesium Level 1.2 mg/dl Test 05/05/17 06:13 05/05/17 07:18 Bedside Glucose 139 mg/dl 178 mg/dl
[2017-05-05] MEDS ORDERED: HYDR-4079 PO (10:54)
[2017-05-05] MEDS ORDERED: CAPTOPRIL 12.5 MG TAB PO SCH (12:00)
--- NOTE | 2017-05-05 14:44 | Pharmacy Progress Note ---
Glycemic Control Intl Consult Date of Service May 05, 2017. Scope Glycemic Pharmacist consulted for glycemic control and to write orders per [facility] inpatient glycemic control protocol. Objective Weight (Kilograms): 166.100 Accuchecks BSG (last 24hrs): Test 05/04/17 15:47 05/04/17 16:13 05/04/17 17:26 05/04/17 20:01 Bedside Glucose 259 mg/dl (70-99) 268 mg/dl (70-99) 282 mg/dl (70-99) Random Glucose 261 mg/dl (70-99) Test 05/04/17 20:59 05/04/17 22:07 05/04/17 23:27 05/05/17 00:21 Bedside Glucose 290 mg/dl (70-99) 241 mg/dl (70-99) 203 mg/dl (70-99) 178 mg/dl (70-99) Test 05/05/17 01:14 05/05/17 02:16 05/05/17 03:15 05/05/17 04:07 Bedside Glucose 151 mg/dl (70-99) 135 mg/dl (70-99) 127 mg/dl (70-99) 121 mg/dl (70-99) Test 05/05/17 05:10 05/05/17 05:17 05/05/17 06:13 05/05/17 07:18 Bedside Glucose 130 mg/dl (70-99) 139 mg/dl (70-99) 178 mg/dl (70-99) Random Glucose 127 mg/dl (70-99) Test 05/05/17 08:11 05/05/17 09:12 05/05/17 10:19 05/05/17 11:18 Bedside Glucose 175 mg/dl (70-99) 173 mg/dl (70-99) 160 mg/dl (70-99) 158 mg/dl (70-99) Test 05/05/17 12:56 Bedside Glucose 210 mg/dl (70-99) Laboratory Data (last 24hrs) Test 05/04/17 16:13 05/05/17 05:17 Anion Gap 6.0 mmol/L 8.0 mmol/L BUN/Creatinine Ratio 15.3 12.2 Blood Urea Nitrogen 13 mg/dl 9 mg/dl Creatinine 0.86 mg/dl 0.70 mg/dl Potassium Level 4.3 mmol/L 4.1 mmol/L Sodium Level 139 mmol/L 136 mmol/L White Blood Count 9.95 K/uL Red Blood Count 4.14 M/uL Hemoglobin 12.6 g/dL Hematocrit 36.9 % Mean Corpuscular Volume 89.1 fL Mean Corpuscular Hemoglobin 30.4 pg Mean Corpuscular Hemoglobin Concent 34.1 g/dl Platelet Count 159 K/uL Mean Platelet Volume 11.2 fL Neutrophils (%) (Auto) 81.2 % Lymphocytes (%) (Auto) 11.1 % Monocytes (%) (Auto) 5.6 % Eosinophils (%) (Auto) 1.5 % Basophils (%) (Auto) 0.2 % Neutrophils # (Auto) 8.08 K/uL Lymphocytes # (Auto) 1.10 K/uL Monocytes # (Auto) 0.56 K/uL Eosinophils # (Auto) 0.15 K/uL Basophils # (Auto) 0.02 K/uL HbA1c Item Value Date Time Hemoglobin A1c 9.9 % H 04/14/17 1610 Recent Pertinent Medications Outpatient Anti-diabetic Regimen: * Lantus 50 units SQ qPM * Novolin-R 26 units TIDM * Glipizide ER 10mg PO qAM * Metformin 1000mg PO BID * A1c = 9.9 % (04/14/17) The patient is currently receiving: * IV insulin infusion Risk Factors for Insulin Resistance: * Recent surgery: POD #1 s/p L carotid endarterectomy * IVF: Nitro gtt (running at high rates, ~100mL/hr) -- contains dextrose * Diet: Type 2 diabetic, AHA diet Assessment & Plan ASSESSMENT: * Mr Villagran is a 51yo diabetic male admitted with carotid stenosis. * Patient is POD #1 s/p L carotid endarterectomy. He was requiring a large amount of IV nitroglycerin (170mcg/hr), which is mixed in dextrose. This has been titrated off. * Patient was initiated on IV insulin infusion d/t persistent hypertension. Lantus was given this morning in preparation for transition to SQ insulin, but gtt rate remains ~4 units/hr. Will continue aggressive Lantus dosing and Novolog q4h until BSGs are stable off of the gtt. * ADA & AACE recommend a goal blood sugar range 140-180 mg/dl for the majority of critically ill & non-critically ill patients. However, more stringent targets may be selected in individual cases. Will utilize more stringent goal of 110-140mg/dl based on patient age & comorbidities. Additionally, tighter glycemic control is warranted to facilitate wound/infection healing. PLAN FOR INPATIENT GLYCEMIC CONTROL: * Holding outpatient oral diabetes medications * Basal insulin with LANTUS 50 units SQ x1 dose at ~1030, then BID dosing based on BSGs: * Lantus 30 units SQ for BSG less than 180mg/dL * Lantus 50 units SQ for BSG 180mg/dL or greater * Correctional Insulin with NOVOLOG per scale ACHS or Q6hrs while NPO -- q4h until BSGs stable, to provide more continuous coverage * Goal Range: Low 110 mg/dL - High 140 mg/dL * Correction Factor: 15 mg/dL/unit * Nutritional / Prandial insulin per carb ratio of 1 unit per 5 grams CHO consumed RECOMMENDATIONS FOR DISCHARGE: * Anticipate that patient will be discharged today or tomorrow? * Current A1c (9.9%) indicates that patient has quite poor glycemic control as an outpatient. * Consider adding additional insulin on discharge, with close follow-up w/ PCP. * Please note that the plan above was derived based on current level of insulin resistance and hospital stress. These recommendations are appropriate for inpatient admission only. Plan of care upon discharge will need to be reassessed to avoid potential outpatient hypo/hyperglycemia. Thank you.
--- NOTE | 2017-05-05 14:47 | Discharge Instructions ---
Discharge Instructions Date of Service May 05, 2017. Admission Reason for Admission: Carotid Stenosis Discharge Discharge Diagnosis / Problem: left carotid endarterectomy Discharge Goals Goal(s): Improve disease control Activity Recommendations Activity Limitations: as noted below Shower/Bathe: no limitations (ok to shower) Driving or Machine Use: no driving for 1 week . Instructions / Follow-Up Instructions / Follow-Up Dr. Dumont in 1 week, call [phone] for any questions or if you need to schedule See your PCP in the next 3-5 days for blood pressure check Current Hospital Diet Patient's current hospital diet: Diabetes Type 2 Diet, AHA Diet (Heart Healthy) Discharge Diet Recommended Diet: Regular Diet Procedures Procedures Performed: Left Carotid Endarterectomy with bovine patch angioplasty Pending Studies Studies pending at discharge: no Laboratory Results Hemoglobin A1c Test 04/14/17 16:10 Range/Units Estimated Average Glucose 237 mg/dl Hemoglobin A1c 9.9 H 4.5-5.6 % Medical Emergencies . Who to Call and When: Medical Emergencies: If at any time you feel your situation is an emergency, please call 911 immediately. . Non-Emergent Contact Non-Emergency issues call your: Surgeon Call Non-Emergent contact if: you have a fever, temperature is above 101.5, your pain is not controlled, wound has increased drainage . "Provider Documentation" section prepared by Bhavik Conde. . VTE Core Measure Inpt VTE Proph given/why not?: SCD's
[2017-05-05] MEDS ORDERED: INSULIN ASPART 100 UNITS/ML 3 ML PEN SC SCH (16:00)
[2017-05-05] MEDS ORDERED: INSULIN GLARGINE SOLOSTAR 100 UNITS/ML 3 ML PEN SC SCH (18:00)
--- NOTE | 2017-05-07 14:08 | DISCHARGE SUMMARY ---
PRIMARY DISCHARGE DIAGNOSES: 1. Critical left carotid artery stenosis. 2. Hypertension. 3. Type 2 diabetes. PROCEDURE PERFORMED: Left carotid endarterectomy with bovine patch angioplasty. CONSULTATIONS: Kalee Cheng retail beauty specialist to assist in postoperative care. HOSPITAL COURSE: The patient is a 51-year-old male with left carotid stenosis, brought in through same day and taken to the operating room for left carotid endarterectomy. The procedure was well tolerated. He was hypertensive following the procedure while in recovery room, required nitroglycerin drip. He was transferred to ICU for continuous blood pressure monitoring. Watcher [employer] was consulted routinely. He was continued on the nitro drip overnight. He was also started on an insulin drip. By the next morning, his blood sugars were ranging in 160 range. His blood pressure was improved. He was weaned from the nitro. He was given a dose of captopril 12.5 mg in the morning in addition to his regular Toprol 150 mg daily. In the afternoon, his blood pressure was 156/86. His neurovascular status was unchanged. His pain was managed with oral analgesics. He was stable for discharge home with close followup with his PCP. DISCHARGE INSTRUCTIONS: Discharge home. Follow up with Dr. Dumont in 1 week. No driving for 1 week. Follow up with his PCP in 3-5 days for blood pressure check. DISCHARGE MEDICATIONS: Continue home medications, which include Cross 10/325 one to two tablets every 8 hours as needed, aspirin 81 mg daily, Lipitor 80 mg daily, Plavix 75 mg daily, glipizide ER 10 mg daily, Lantus 50 units in the evening, Novolin R 26 units 3 times a day, Glucophage 1000 mg b.i.d., Toprol-XL 150 mg daily, and p.r.n. Nitrostat 0.4 mg.
== END 2017-05-05 16:50 | disposition home or self-care (01) | DRG 39 ==
LOC: C.ACU 09:09 → C.MSICU 15:33 → ENRESERV 16:08
PROVIDERS: ADMIT Surgery; ATTEND Surgery
PROC: 03CL0ZZ Extirpation of Matter from Left Internal Carotid Artery, Open Approach (ICD-10-PCS; principal; 2017-05-04 11:30)
PROC: 03UL0JZ Supplement Left Internal Carotid Artery with Synthetic Substitute, Open Approach (ICD-10-PCS; principal; 2017-05-04 11:30)
DX: I65.22 Occlusion and stenosis of left carotid artery (principal); E11.65 Type 2 diabetes mellitus with hyperglycemia; I25.10 Atherosclerotic heart disease of native coronary artery without angina pectoris; H40.059 Ocular hypertension, unspecified eye; E11.29 Type 2 diabetes mellitus with other diabetic kidney complication; M10.9 Gout, unspecified; H91.90 Unspecified hearing loss, unspecified ear; I25.2 Old myocardial infarction; E78.5 Hyperlipidemia, unspecified; I11.9 Hypertensive heart disease without heart failure; K21.9 Gastro-esophageal reflux disease without esophagitis; F17.200 Nicotine dependence, unspecified, uncomplicated; Z79.899 Other long term (current) drug therapy; Z79.4 Long term (current) use of insulin; Z79.891 Long term (current) use of opiate analgesic; Z95.5 Presence of coronary angioplasty implant and graft; Z80.0 Family history of malignant neoplasm of digestive organs; Z83.49 Family history of other endocrine, nutritional and metabolic diseases; Z82.49 Family history of ischemic heart disease and other diseases of the circulatory system; Z83.3 Family history of diabetes mellitus

== ENCOUNTER → 2017-09-17 | Outpatient (CLI) | payer OTHER ==
[~2017-09-17] MED LIST changes: -HEPARIN SOD (PORCINE) 1000 UNIT/ML 10 ML VIAL ONE; -LACTATED RINGER'S 1000ML 1,000 ML IV SCH; +METO100T44 PO; -METO1TAB69 PO; -PROTAMINE SULFATE 10 MG/ML 5 ML VIAL IV ONE
[2017-09-17 12:48] LABS: ESTIMATED AVERAGE GLUCOSE 246 mg/dl; HA1C FLAG Normal (Normal)
[2017-09-17 13:06] LABS: CREATININE RANDOM URINE 61.8 mg/dl
[2017-09-17 13:17] LABS: RATIO 388.4 mcg/mg (0-30.0)
[2017-09-17 13:18] LABS: BLOOD UREA NITROGEN 15 mg/dl (7-18); BUN/CREATININE RATIO 14.9 (10-20); CALCIUM 9.2 mg/dl (8.5-10.1); CARBON DIOXIDE 30 mmol/L (21-32); CHLORIDE 100 mmol/L (98-107); CREATININE 1.01 mg/dl (0.60-1.40); GLUCOSE 263 mg/dl (70-99); SODIUM 136 mmol/L (136-145)
== END | disposition home or self-care (01) ==
LOC: C.LABMFLN 09:34
PROVIDERS: ATTEND Family Medicine
DX: E11.29 Type 2 diabetes mellitus with other diabetic kidney complication (principal); I70.1 Atherosclerosis of renal artery